=== PATIENT | female | born 1970 | race Caucasian/White ===

== ENCOUNTER 2022-06-30 20:12 | Emergency (ER) | payer SELFPAY ==
[~2022-06-30] VITALS: Ht 162.6 cm; Wt 61.2 kg
--- NOTE | 2022-06-30 20:25 | NUR ---
BIBS. R UPPER ARM REDNESS, SWELLING AND PAIN X 3 DAYS. PT A/OX4. TOLERATING R/A WELL WITH NO RESP DISTRESS. CONNECTED PT TO POX AND MONITOR.
--- NOTE | 2022-06-30 20:47 | NUR ---
US TECH AT PT'S BEDSIDE
[2022-06-30] MEDS ORDERED: SULF1TAB48 PO (21:14)
[2022-06-30] MEDS ORDERED: CEPH500C2 PO (21:14)
--- NOTE | 2022-06-30 21:17 | NUR ---
Patient discharged to home in stable condition. RX Written and verbal after care instructions given. Patient verbalizes understanding of instruction. PT ambulatory with a steady gait
[2022-06-30 21:18] VITALS: BP 111/76
== END 2022-06-30 21:19 | disposition home or self-care (01) ==
LOC: ER 20:37
DX: L03.113 Cellulitis of right upper limb (principal); Z85.3 Personal history of malignant neoplasm of breast; Z79.899 Other long term (current) drug therapy
CPT/HCPCS: 93971-TC

== ENCOUNTER 2025-03-21 09:38 | Emergency (ER) | payer BC, OTHER ==
[~2025-03-21] VITALS: Ht 160 cm; Wt 61.2 kg
[~2025-03-21 09:38] MED LIST: CEPH500C2 PO; SULF1TAB48 PO
[2025-03-21 10:04] LABS: PLATELET COUNT (AUTO) 282 K/uL (150-450); RED BLOOD CELL COUNT(AUTO) 4.80 MIL/uL (4.0-5.2); RED CELL DISTRIBUTION WIDTH 12.7 % (11.5-15.0); WHITE BLOOD COUNT (AUTO) 5.5 K/uL (4.3-11.0)
[2025-03-21 10:07] LABS: APPEARANCE,URINE CLEAR (CLEAR); BLOOD, URINE NEGATIVE Ery/uL (NEGATIVE); LEUKOCYTE ESTERASE ,URINE NEGATIVE (NEGATIVE); NITRITE, URINE NEGATIVE (NEGATIVE); UGLUCOSE NEGATIVE (NEGATIVE)
[2025-03-21 10:15] LABS: ASPARTATE AMINOTRANSFERASE 18.0 U/L (15-37); CALCIUM, SERUM 9.2 mg/dL (8.5-10.1); CREATININE 0.8 mg/dL (0.6-1.3); SODIUM SERUM 138.0 mmol/L (136-145); TOTAL PROTEIN, SERUM 7.5 g/dL (6.4-8.2); UREA NITROGEN, BLOOD 12.0 mg/dL (7-18)
[2025-03-21 11:17] VITALS: BP 120/72; TEMP 97.8; O2SAT 98
== END 2025-03-21 11:17 | disposition home or self-care (01) ==
LOC: ER 09:48
DX: R10.A1 Flank pain, right side (principal); Z85.3 Personal history of malignant neoplasm of breast
CPT/HCPCS: 36415; 80048-TC; 80076-TC; 83690-TC; 84703-TC; 85025-TC